=== PATIENT | female | born 1960 | race Caucasian/White ===

== ENCOUNTER 2019-04-09 09:24 | Day surgery (SDC) | payer OTHER ==
[~2019-04-09 09:24] MED LIST: Lactated Ringers 1,000 ML IV SCH; Sodium Chloride 0.9% 10 ML SDV IV PRN; Sodium Chloride 0.9% 10 ML Syringe FLUSH PRN; Sodium Chloride 0.9% 2.5 ML Syringe FLUSH PRN
--- NOTE | 2019-04-09 10:35 | PCM.PREANE ---
Preanesthetic Assessment - Anesthesia/Transfusion/Family Hx Anesthesia History: Prior Anesthesia Reaction Family History of Anesthesia Reaction: No Transfusion History: No Prior Transfusion(s) - Review of Systems General: No Symptoms Pulmonary: No Symptoms Cardiovascular: No Symptoms Gastrointestinal: No Symptoms Neurological: No Symptoms Other: Reports: None - Physical Assessment NPO Status Date: 04/09/19 NPO Status Time: 03:30 O2 Sat by Pulse Oximetry: 96 Respiratory Rate: 16 Vital Signs: Last Vital Signs Temp 98.1 F 04/09/19 10:00 Pulse 104 H 04/09/19 10:00 Resp 16 04/09/19 10:00 BP 142/93 H 04/09/19 10:00 Pulse Ox 96 04/09/19 10:00 Height: 5 ft 4 in Weight: 76.657 kg ASA Class: 1 Mental Status: Alert & Oriented x3 Airway Class: Mallampati = 2 Dentition: Reports: Normal Dentition ROM/Head Extension: Full Lungs: Clear to Auscultation, Normal Respiratory Effort Cardiovascular: Regular Rate, Regular Rhythm - Allergies Allergies/Adverse Reactions: Allergies Allergy/AdvReac Type Severity Reaction Status Date / Time No Known Allergies Allergy Verified 04/06/19 12:28 - Blood Blood Available: No - Anesthesia Plan Pre-Op Medication Ordered: None - Acknowledgements Anesthesia Type Planned: General Anesthesia Pt an Appropriate Candidate for the Planned Anesthesia: Yes Alternatives and Risks of Anesthesia Discussed w Pt/Guardian: Yes Pt/Guardian Understands and Agrees with Anesthesia Plan: Yes PreAnesthesia Questionnaire HEENT History: Reports: Other (See Below) Other HEENT History: wears glasses Gastrointestinal History: Reports: None Psychiatric History: Reports: Anxiety - Past Surgical History GI Surgical History: Reports: Cholecystectomy - SUBSTANCE USE Smoking Status *Q: Never Smoker Recreational Drug Use History: No - HOME MEDS Home Medications: Home Meds Fish Oil/[place]-3 Fatty Acids [Fish Oil 1,000 MG] 1,000 mg PO DAILY 04/06/19 [ History] L.acidoph,Paracasei, B.lactis [Probiotic] 1 cap PO DAILY 04/06/19 [History] Multivitamin [Daily Multiple Vitamin] 1 tab PO DAILY 04/06/19 [History] - CURRENT (IN HOUSE) MEDS Current Meds: Current Medications Lactated Ringer's (Ringers, Lactated) 1,000 mls @ 125 mls/hr IV ASDIRECTED MARIA ALEJANDRA Last Admin: 04/09/19 10:17 Dose: 125 mls/hr Sodium Chloride (Saline Flush) 10 ml FLUSH ASDIRECTED PRN PRN Reason: Keep Vein Open Sodium Chloride (Saline Flush) 2.5 ml FLUSH ASDIRECTED PRN PRN Reason: Keep Vein Open Sodium Chloride (Saline Flush) 10 ml FLUSH ASDIRECTED PRN PRN Reason: Keep Vein Open Sodium Chloride (Saline Flush) 2.5 ml FLUSH ASDIRECTED PRN PRN Reason: Keep Vein Open Sodium Chloride (Normal Saline) 10 ml IV ASDIRECTED PRN PRN Reason: IV Use
[2019-04-09] MEDS ORDERED: fentaNYL 100 MCG/2 ML SDV ONE (10:43)
[2019-04-09] MEDS ORDERED: Propofol 200 MG/20 ML SDV ONE (10:43)
[2019-04-09] MEDS ORDERED: Midazolam 1 MG/ML 2 ML SDV ONE (10:43)
--- NOTE | 2019-04-09 12:31 | PCM.POSTAN ---
POST ANESTHESIA ASSESSMENT - MENTAL STATUS Mental Status: Alert, Oriented - RESPIRATORY Respiratory Status: Respiratory Rate WNL, Airway Patent, O2 Saturation Stable - CARDIOVASCULAR CV Status: Pulse Rate WNL, Blood Pressure Stable - GASTROINTESTINAL GI Status: No Symptoms - POST OP HYDRATION Hydration Status: Adequate & Stable
--- NOTE | 2019-04-09 12:31 | PCM48HPAN ---
Post Anesthesia Note - EVALUATION WITHIN 48HRS OF ANESTHETIC Vital Signs in Normal Range: Yes Patient Participated in Evaluation: Yes Respiratory Function Stable: Yes Airway Patent: Yes Cardiovascular Function Stable: Yes Hydration Status Stable: Yes Pain Control Satisfactory: Yes Nausea and Vomiting Control Satisfactory: Yes Mental Status Recovered: Yes Resp Rate: 16
--- NOTE | 2019-04-09 13:22 | PCM.OPNOTE ---
- General Post-Op/Procedure Note Date of Surgery/Procedure: 04/09/19 Operative Procedure(s): Diagnostic colonoscopy Findings: Anal canal polyp, sigmoid colon polyp, hemorrhoids Pre Op Diagnosis: Positive cologuard Post-Op Diagnosis: Anal canal polyp, sigmoid colon polyp, hemorrhoids Anesthesia Technique: MAC Condition: Good Free Text/Narrative:: Intake & Output 04/08/19 04/09/19 04/09/19 22:59 06:59 14:59 Intake Total 700 Balance 700
--- NOTE | 2019-04-10 12:56 | OR ---
SURGEON: MIREYA PEREZ MD DATE OF PROCEDURE: 04/09/2019 PREOPERATIVE DIAGNOSIS: Positive Cologuard test. POSTOPERATIVE DIAGNOSES: 1. Sigmoid colon polyp. 2. Anal canal polyp. PROCEDURE PERFORMED: Diagnostic colonoscopy. PRIMARY SURGEON: Endoscopist, Mireya Perez MD. ANESTHESIA: MAC. INSTRUMENT USED: Olympus colonoscope. EXTENT OF EXAM: To the cecum. PREPARATION: Good. LIMITATIONS: None. INDICATION FOR EXAMINATION: The patient is a 58-year-old female who presents with a positive Cologuard test. I explained the need for diagnostic colonoscopy. We discussed the procedure, expected perioperative course, and risks including bleeding, infection, or damage to surrounding structures including perforation. The patient verbalized understanding and wishes to proceed. PROCEDURE IN DETAIL: The patient was brought into the endoscopy suite and placed in the left lateral decubitus position. A time-out was completed verifying the patient's name, age, date of , allergies, and procedure to be performed. Monitored anesthesia care was induced and continuous oxygen was provided via nasal cannula throughout the procedure. After adequate sedation was achieved, a digital rectal exam was performed. This exam was within normal limits. A well lubricated colonoscope was inserted into the rectum and advanced under direct visualization to the level of the cecum. The cecum was identified by both visual and anatomic landmarks. A photograph was taken of the cecal cap as well as with the scope retroflexed within the cecum. The scope was then fully withdrawn while examining the color, texture, anatomy, and integrity of the mucosa from the cecum to the anal canal. The patient was found to have a small sessile polyp within the distal sigmoid colon. This was removed using a cold biopsy forceps. The scope was then brought into the rectum and retroflexed to allow visualization of the anal canal opening. The patient had some enlarged hemorrhoidal tissue. A photograph of this was taken. The scope was then fully withdrawn. However, as I was going through the anal canal, I noticed an irregular piece of tissue. The scope was removed and I performed a digital rectal exam again. The patient appeared to have either an irritated hemorrhoidal column or an anal canal polyp on top of the hemorrhoidal column. The decision was made to remove this at a later date given that it was on the hemorrhoidal tissue. The procedure was terminated and the patient was taken to the PACU in stable condition. ENDOSCOPIC DIAGNOSES: 1. Sigmoid colon polyp. 2. Anal canal polyp. RECOMMENDATIONS: Follow up in clinic in 2 weeks to discuss the Pathology results from her sigmoid colon by polyp removal and to discuss removing the hemorrhoidal column with the polyp or irritated tissue on it. TWILA BARR /[id number]
== END 2019-04-09 13:00 | disposition home or self-care (01) ==
LOC: MW.SDS 09:24
PROVIDERS: ATTEND Surgery
DX: K63.5 Polyp of colon (principal); K64.9 Unspecified hemorrhoids; Z98.890 Other specified postprocedural states
CPT/HCPCS: 00812; J2001; J2250; J2704; J3010; J7120